=== PATIENT | female | born 1965 | race Caucasian/White ===

== ENCOUNTER 2017-04-02 12:53 | Emergency (ER) | payer OTHER ==
[~2017-04-02] VITALS: Ht 154.9 cm; Wt 59.9 kg
[~2017-04-02 12:53] MED LIST: LORA0.5T PO
[2017-04-02 13:38] LABS: *BILIRUBIN,URIN NEGATIVE (NEGATIVE); *BLOOD, URINE Trace-lysed (NEGATIVE); *CLARITY,URINE CLEAR (CLEAR); *COLOR,URINE YELLOW (YELLOW); *KETONES,URINE NEGATIVE (NEGATIVE); *PROTEIN,URINE NEGATIVE (NEGATIVE); *URINE HCG, QUAL NEGATIVE (NEGATIVE); *UROBILINOGEN,URINE 0.2 E.U./dl (NORMAL); LEUKOCYTE ESTERASE ,URINE NEGATIVE (NEGATIVE); NITRITE, URINE NEGATIVE (NEGATIVE); PH,URINE 5.5 (5.0-8.0); UGLUCOSE NEGATIVE (NEGATIVE)
--- NOTE | 2017-04-02 13:38 | NUR ---
URINE SENT TO MD DEMETRIUS AT THE BEDSIDE.
[2017-04-02 13:56] LABS: BACTERIA,URINE NONE SEEN /HPF (NONE SEEN); SQUAMOUS EPITHELIAL CELL,UR MODERATE /HPF (NONE SEEN)
--- NOTE | 2017-04-02 14:03 | NUR ---
MSE COMPLETED. PT D/C'D HOME, ACI/RX X 2 GIVEN. PT AMBULATED W/O DIFF.
[2017-04-02 14:04] VITALS: BP 120/59
== END 2017-04-02 14:05 | disposition home or self-care (01) ==
LOC: ER 12:53
DX: M54.5 Low back pain (principal); Z88.6 Allergy status to analgesic agent
CPT/HCPCS: 81001; 84703; 99284; A4663

== ENCOUNTER 2018-01-30 17:13 | Inpatient (IN) | payer OTHER ==
[~2018-01-30] VITALS: Ht 157.5 cm; Wt 59.9 kg
[2018-01-30] MEDS ORDERED: GABA-534 PO (17:31)
[2018-01-30] MEDS ORDERED: TRAZ-144 PO (17:31)
--- NOTE | 2018-01-30 17:55 | NUR ---
PATIENT WAS SEEN BY DR GUDINO. IV PLACED. LABS DRAWN. PATIENT ON CONTINUOUS CARDIAC MONITORING.
[2018-01-30 18:01] LABS: BASOPHILS % (AUTO) 0.4 % (0.0-2.0); EOSINOPHILS # (AUTO) 0.1 K/uL (0.0-0.7); EOSINOPHILS % (AUTO) 0.8 % (0.0-7.0); HEMATOCRIT 38.1 % (31.2-41.9); HEMOGLOBIN 13.3 g/dL (10.9-14.3); LYMPHOCYTES % (AUTO) 31.5 % (20.5-51.5); MEAN CORPUSCULAR HEMOGLOBIN 30.6 uug (24.7-32.8); MEAN CORPUSCULAR HGB CONC 35 g/dL (32.3-35.6); MEAN CORPUSCULAR VOLUME 87.9 fL (75.5-95.3); MONOCYTES # (AUTO) 0.5 K/uL (2.0-10.0); MONOCYTES % (AUTO) 7.4 % (0.0-11.0); NEUTROPHILS # (AUTO) 3.9 K/uL (1.8-8.9); NEUTROPHILS % (AUTO) 59.9 % (38.5-71.5); PLATELET COUNT (AUTO) 214 K/uL (179-408); RED BLOOD CELL COUNT(AUTO) 4.33 MIL/uL (3.63-4.92); WHITE BLOOD COUNT (AUTO) 6.5 K/uL (3.8-11.8)
[2018-01-30 18:05] LABS: CREATININE 0.9 mg/dL (0.6-1.3); POTASSIUM 3.3 mmol/L (3.5-5.1)
[2018-01-30 18:11] LABS: BILIRUBIN,TOTAL 0.5 mg/dL (0.2-1.0); MAGNESIUM 1.9 mg/dL (1.8-2.4); TOTAL PROTEIN, SERUM 7.6 g/dL (6.4-8.2)
[2018-01-30] MEDS ORDERED: POTASSIUM CHLORIDE 20 MEQ TAB.PRT.SR PO ONE (18:12)
[2018-01-30] MEDS ORDERED: HYDROCODONE/APAP 5-325MG TABLET PO ONE (18:30)
--- NOTE | 2018-01-30 18:32 | NUR ---
patient states she does not want the [place] because it makes her feel unwell. States she does not need pain mediicne at this time. dr Daugherty notified.
--- NOTE | 2018-01-30 18:51 | NUR ---
Patient ate some crackers and drank water.
--- NOTE | 2018-01-30 19:15 | NUR ---
HANDOFF REPORT GIVEN TO RICHARD VITALE
--- NOTE | 2018-01-30 19:17 | NUR ---
ASSUMED CARE OF PATIENT. PATIENT IN BED, NO ACUTE DISTRESS NOTED. VSS. PENDING INPATIENT ADMISSION AT THIS TIME, TELEMETRY UNDER KASIA HERMES. PATIENT ON MANAGER OUTREACH WITH NSR NOTED @ 57 BPM. RESPIRATIONS EVEN AND UNLABORED. NO GI/ DISTRESS NOTED. BED IN LOWEST POSITION, WHEELS LOCKED, SIDERAILS UP X 2. CALL LIGHT WITHIN REACH.
--- NOTE | 2018-01-30 19:50 | NUR ---
Pt. admitted to Telemetry , under care of Geen Feng. Report given to Griffin @ [facility]. Room 220. [place] completed. VSS. Not eligible for MRSA at this time.
--- NOTE | 2018-01-30 20:00 | NUR ---
NEW ADMIT FROM ER, ADMITTED FOR CHEST PAIN. PATIENT DENIES CHEST PAIN OR ANY DISTRESS ON ASSESSMENT. VSS STABLE, SAFETY MEASURES IN PLACE. WILL CONTINUE TO MONITOR PATIENT
[2018-01-30 20:08] VITALS: BP 116/72
[2018-01-30] MEDS ORDERED: ONDANSETRON 4 MG/2 ML VIAL IV PRN (23:00)
[2018-01-30] MEDS ORDERED: Z GUARD REMEDY PASTE 57 GM TUBE TOP PRN (23:00)
[2018-01-30] MEDS ORDERED: ACETAMINOPHEN 325 MG TABLET PO PRN (23:00)
[2018-01-30] MEDS ORDERED: NITROGLYCERIN OINT 1 GM PACKET TP PRN (23:00)
[2018-01-30] MEDS ORDERED: ZOLPIDEM 5 MG TABLET PO PRN (23:00)
[2018-01-31] VITALS: BP 109/67
[2018-01-31 04:00] VITALS: BP 103/54
[2018-01-31 07:01] LABS: BASOPHILS % (AUTO) 0.8 % (0.0-2.0); EOSINOPHILS # (AUTO) 0.1 K/uL (0.0-0.7); EOSINOPHILS % (AUTO) 1.6 % (0.0-7.0); HEMATOCRIT 36.2 % (31.2-41.9); HEMOGLOBIN 12.8 g/dL (10.9-14.3); LYMPHOCYTES # (AUTO) 2.4 K/uL (20.0-40.0); LYMPHOCYTES % (AUTO) 43.3 % (20.5-51.5); MEAN CORPUSCULAR HEMOGLOBIN 30.9 uug (24.7-32.8); MEAN CORPUSCULAR HGB CONC 35 g/dL (32.3-35.6); MEAN CORPUSCULAR VOLUME 87.5 fL (75.5-95.3); MONOCYTES # (AUTO) 0.5 K/uL (2.0-10.0); MONOCYTES % (AUTO) 9.5 % (0.0-11.0); NEUTROPHILS # (AUTO) 2.5 K/uL (1.8-8.9); NEUTROPHILS % (AUTO) 44.8 % (38.5-71.5); PLATELET COUNT (AUTO) 207 K/uL (179-408); RED BLOOD CELL COUNT(AUTO) 4.14 MIL/uL (3.63-4.92); WHITE BLOOD COUNT (AUTO) 5.5 K/uL (3.8-11.8)
--- NOTE | 2018-01-31 07:07 | NUR ---
PATIENT SLEPT WELL THROUGH THE SHIFT, NO C/O OF CHEST OR ACUTE DISTRESS ON THIS SHIFT. NO FURTHER CHANGES IN STATUS
[2018-01-31 07:11] LABS: BILIRUBIN,TOTAL 0.3 mg/dL (0.2-1.0); CREATININE 0.8 mg/dL (0.6-1.3); MAGNESIUM 1.9 mg/dL (1.8-2.4); PHOSPHOROUS 4.2 mg/dL (2.5-4.9); TOTAL PROTEIN, SERUM 6.6 g/dL (6.4-8.2)
[2018-01-31 07:23] LABS: THYROID STIMULATING HORMONE 6.554 mIU/mL (0.358-3.740)
[2018-01-31] MEDS ORDERED: LORAZEPAM 0.5 MG TABLET PO SCH (09:00)
[2018-01-31] MEDS ORDERED: ASPIRIN EC 81 MG TABLET.DR PO SCH (09:00)
[2018-01-31 11:09] VITALS: BP 99/57
[2018-01-31 15:06] VITALS: BP 102/51
--- NOTE | 2018-01-31 17:47 | NUR ---
Patient was discharged to home, accompanied by significant other via private transportation. Patient is awake, alert and oriented x4, in no acute distress. No SOB or chest pain noted. Skin is warm and dry to touch, no open wound noted. Discharge instructions was given, able to verbalize understanding. Reviewed list of medication with patient. Instructed patient to follow up with PCP in one week, able to verbalize understanding. IV site was discontinued, no s/s of bleeding noted. Left the hospital in stable condition.
[2018-01-31] MEDS ORDERED: TRAZODONE 50 MG TABLET PO SCH (18:00)
[2018-01-31] MEDS ORDERED: GABAPENTIN 300 MG CAPSULE PO SCH (18:00)
[2018-01-31] MEDS ORDERED: ATORVASTATIN 20 MG TABLET PO SCH (21:00)
== END 2018-01-31 17:40 | disposition home or self-care (01) | DRG 203 ==
LOC: ER 17:16 → TELE 19:40
PROVIDERS: ADMIT Nurse Practitioner Acute Care; ATTEND Nurse Practitioner Acute Care
DX: R07.89 Other chest pain (principal); E87.6 Hypokalemia; G89.4 Chronic pain syndrome; M54.10 Radiculopathy, site unspecified; Z90.710 Acquired absence of both cervix and uterus; Z90.49 Acquired absence of other specified parts of digestive tract
CPT/HCPCS: 36415; 70030-TC; 71045; 83735; 84100; 84443; 85025; 85610; 93005; 93307; A4663